=== PATIENT | male | born 1990 | race Caucasian/White ===

== ENCOUNTER 2024-03-15 18:51 | Inpatient (IN) ==
--- NOTE | 2024-03-15 19:10 | Emergency Department Note ---
Impression & Plan Heart palpitations, Sinus tachycardia, Non-ST elevation [place] (NSTEMI), Acute hypokalemia ED Provider Note HISTORY OF PRESENT ILLNESS: Patient is a 33-year-old male presenting with palpitations. 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 Reports he did not feel right. States that symptoms persisted throughout the afternoon and when he got home he still was not feeling his normal self and his parents brought him to the emergency room. He denies any chest pain or shortness of breath. He reports that he feels like his heart is racing and skipping beats. Denies any recent travel. Denies any medication usage. He denies any recent initiation of medications. He does not drink excessive caffeine. Denies any alcohol or recreational drug use. He denies any DVT or PE history. He is not on any anticoagulation. Denies any significant lightheadedness at this time. ROS: as above PHYSICAL EXAM: Constitutional: Patient appears in no acute distress. HENT: Head: Normocephalic and atraumatic. Eyes: EOMI, PERRL Mouth/Throat: Mucous membranes moist. Neck: Trachea midline. Neck supple. Cardiovascular: Tachycardic with regular rhythm. No murmurs, rubs or gallops. Intact distal pulses. Pulmonary/Chest: No respiratory distress. Breath sounds clear and equal bilaterally. No wheezes or rales. No chest wall tenderness to palpation. Abdominal: Abdomen soft, no tenderness, rebound or guarding. Musculoskeletal: No edema, tenderness or deformity noted. Skin: Warm and dry. No rash, erythema, pallor or cyanosis Psychiatric: Appropriate mood and affect for situation. Neurological: Alert and keenly responsive. CN II-XII grossly intact, moving all extremities equally and fully. MDM: - Vitals signs showed hypertension and tachycardia. - History obtained via patient. History as above. - Chronic conditions affecting care: none - Differential diagnoses include, but are not limited to: Dysrhythmia; electrolyte abnormality; dehydration; medication side effect; pneumonia; PE - Order placed for continuous cardiac monitoring. At this time, monitor showed rate of 120 bpm with normal sinus rhythm, per my interpretation. - External medical records reviewed. Primary care visit note dated 06/01/2019 was reviewed. Patient followed in their clinic for benign positional vertigo. He was referred to ENT. - EKG interpreted by myself showed normal sinus rhythm. Rate tachycardic at 152 bpm. QT 332. No acute ischemic changes. - Laboratory workup interpreted by myself showed normal WBC; hypokalemia (K 3.1); negative dimer; normal PT/INR; elevated troponin (39) - Patient given 2L NS with minimal improvement in HR. - CT PE negative for PE. - Repeat troponin rising to 67.2 - CXR negative for pneumonia, per my interpretation - Viral respiratory panel added to workup - Unclear etiology for patient's persistent tachycardia. NSTEMI is likely in the setting of his rapid heart rate and demand ischemia. - 30 mEq IV potassium ordered for electrolyte replacement. - TSH added to workup - Discussion was had with rifle case repairer about patient's case and need for admission - Hospitalist consulted for admission - Patient admitted to [facility] for further evaluation and management. ASSESSMENT AND PLAN: Diagnosis: sinus tachycardia; NSTEMI; acute hypokalemia; heart palpitations Plan: admit Past Med/Surg History Problem List (Updated 03/15/24 @ 22:56 by Daisha Person MD) Acute hypokalemia (Acute) Non-ST elevation WA (NSTEMI) (Acute) Sinus tachycardia (Acute) Heart palpitations (Acute) Impacted cerumen of both ears (Chronic) Benign positional vertigo (Chronic) Acid reflux disease Vitamin D deficiency Surgical History (Updated 06/08/19 @ 08:11 by Kathy Park) No history of previous surgery Family History (Updated 06/08/19 @ 08:13 by Kathy Park) Grandmother Hypertension Breast cancer Unknown Breast cancer Grandmother Breast cancer Denies family history of Hearing loss Clotting disorder Heart disease Stroke Asthma Social History (Updated 06/08/19 @ 08:16 by Kathy Park) Smoking Status: Never smoker Second Hand Exposure: No; Do You Dip or Chew Tobacco: No; Hx Alcohol Use: No Hx Substance Use: No Preferred Language: Georgian marital status: Single current occupational status: employed current occupation: [employer] Feels Safe at Home: Yes Childhood Exposure to Second-Hand Smoke: No Allergies Allergies Allergy/AdvReac Type Severity Reaction Status Date / Time amoxicillin AdvReac Stomach Verified 06/08/19 08:09 pain Home Meds Previous Rx's Medication Instructions Recorded meclizine 25 mg tablet 25 mg PO TID PRN dizziness #20 tabs 05/05/19 prednisone 50 mg tablet 50 mg PO DAILY #5 tabs 05/05/19 Results & Data (ED) Vital Signs Vital Signs - 24 hr 03/15/24 18:58 03/15/24 19:08 03/15/24 19:11 Temperature 37.3 C Temperature Source Oral Pulse Rate 153 H 151 H 155 H Pulse Rate from SpO2 Sensor Respiratory Rate 20 17 Respiratory Effort / Characteristics Non-Labored Respiratory Depth Normal Respiratory Pattern Regular Blood Pressure 184/97 H Blood Pressure Mean 126 Pulse Oximetry 98 Oxygen Delivery Method Room Air Sepsis Recent Fever Within 48 Hours No Sepsis New/Unexplained Change in Mental Status N/A Sepsis Action Taken by Nursing No Action Required 03/15/24 19:11 03/15/24 19:11 03/15/24 19:28 Temperature Temperature Source Pulse Rate 148 H Pulse Rate from SpO2 Sensor Respiratory Rate 18 Respiratory Effort / Characteristics Respiratory Depth Respiratory Pattern Blood Pressure 152/108 H Blood Pressure Mean 117 Pulse Oximetry Oxygen Delivery Method Room Air Sepsis Recent Fever Within 48 Hours Sepsis New/Unexplained Change in Mental Status Sepsis Action Taken by Nursing 03/15/24 19:28 03/15/24 19:30 03/15/24 19:30 Temperature Temperature Source Pulse Rate 134 H Pulse Rate from SpO2 Sensor 134 H Respiratory Rate 18 Respiratory Effort / Characteristics Respiratory Depth Respiratory Pattern Blood Pressure 137/83 Blood Pressure Mean 111 Pulse Oximetry 96 Oxygen Delivery Method Room Air Sepsis Recent Fever Within 48 Hours Sepsis New/Unexplained Change in Mental Status Sepsis Action Taken by Nursing 03/15/24 20:00 03/15/24 20:00 03/15/24 20:30 Temperature Temperature Source Pulse Rate 131 H Pulse Rate from SpO2 Sensor 131 H Respiratory Rate 18 Respiratory Effort / Characteristics Respiratory Depth Respiratory Pattern Blood Pressure 116/76 134/77 Blood Pressure Mean 93 101 Pulse Oximetry 97 Oxygen Delivery Method Sepsis Recent Fever Within 48 Hours Sepsis New/Unexplained Change in Mental Status Sepsis Action Taken by Nursing 03/15/24 20:30 03/15/24 21:16 03/15/24 21:56 Temperature Temperature Source Pulse Rate 131 H Pulse Rate from SpO2 Sensor 130 H 135 H 118 H Respiratory Rate 16 Respiratory Effort / Characteristics Respiratory Depth Respiratory Pattern Blood Pressure Blood Pressure Mean Pulse Oximetry 97 99 98 Oxygen Delivery Method Sepsis Recent Fever Within 48 Hours Sepsis New/Unexplained Change in Mental Status Sepsis Action Taken by Nursing 03/15/24 21:56 05/20/24 22:00 03/15/24 22:30 Temperature Temperature Source Pulse Rate 113 H 112 H Pulse Rate from SpO2 Sensor 114 H 112 H Respiratory Rate 17 29 H Respiratory Effort / Characteristics Respiratory Depth Respiratory Pattern Blood Pressure 124/86 Blood Pressure Mean 94 Pulse Oximetry 98 96 Oxygen Delivery Method Sepsis Recent Fever Within 48 Hours Sepsis New/Unexplained Change in Mental Status Sepsis Action Taken by Nursing 03/15/24 22:36 03/15/24 22:36 Temperature Temperature Source Pulse Rate 123 H Pulse Rate from SpO2 Sensor 125 H Respiratory Rate 25 H Respiratory Effort / Characteristics Respiratory Depth Respiratory Pattern Blood Pressure 136/102 H Blood Pressure Mean 110 Pulse Oximetry 98 Oxygen Delivery Method Sepsis Recent Fever Within 48 Hours Sepsis New/Unexplained Change in Mental Status Sepsis Action Taken by Nursing Laboratory Data 03/15/24 19:20 03/15/24 19:20 Lab Results 03/15/24 03/15/24 Range/Units 19:20 21:21 WBC 9.24 (4.8-10.8) K/ul RBC 5.56 (4.70-6.10) M/uL Hgb 16.3 (14.0-18.0) g/dl Hct 45.2 (42.0-52.0) % MCV 81.3 (80.0-100.0) fL MCH 29.3 (25.0-34.0) pg MCHC 36.1 H (32.0-36.0) g/dL RDW Std Deviation 36.7 (36.4-46.3) fL RDW Coeff of Hiram 12.4 (11.5-14.5) % Plt Count 179 (130-400) K/uL MPV 11.2 (9.4-12.4) fL Immature Gran % (Auto) 0.3 % Neut % (Auto) 75.0 % Lymph % (Auto) 15.6 % Douglas % (Auto) 6.7 % Eos % (Auto) 1.8 % Baso % (Auto) 0.6 % Neut # (Auto) 6.92 H (1.40-6.50) K/uL Lymph # (Auto) 1.44 (1.20-3.40) K/uL Douglas # (Auto) 0.62 H (0.11-0.59) K/uL Eos # (Auto) 0.17 (0.00-0.50) K/uL Baso # (Auto) 0.06 (0.00-0.20) K/uL Immature Gran # (Auto) 0.03 (0.01-0.20) K/uL PT 10.5 (9.0-12.0) Seconds INR 1.0 (0.9-1.1) APTT 27 (21-31) Seconds PTT Ratio 1.0 D-Dimer < 190 (0-500) ug/L FEU Sodium 137 (136-145) mmol/L Potassium 3.1 L (3.5-5.1) mmol/L Chloride 102 (98-107) mmol/L Carbon Dioxide 27 (21-32) mmol/L Anion Gap 8 (3-11) BUN 19 (6-23) mg/dl Creatinine 1.05 (0.6-1.4) mg/dl Est Cr Clr Drug Dosing 145.7 ml/min Est GFR ( Amer) 108.3 ml/min Est GFR (Non-Af Amer) 93.5 ml/min BUN/Creatinine Ratio 18.1 (10-20) Glucose 118 H (70-99(Fasting)) mg/dl Calcium 9.7 (8.6-10.3) mg/dl Magnesium 1.9 (1.7-2.4) mg/dl Total Bilirubin 0.8 (0.2-1.0) mg/dl AST 24 (13-39) U/L ALT 41 (7-52) U/L Alkaline Phosphatase 63 (34-104) U/L Troponin I High Sens 39.0 H 67.2 H* D (0-20) pg/ml B-Natriuretic Peptide 16 (0-100) pg/ml Total Protein 7.9 (6.0-8.3) gm/dl Albumin 4.7 (3.4-5.0) gm/dl Globulin 3.2 (2.5-4.0) gm/dl Albumin/Globulin Ratio 1.5 (0.9-2) Administered Medications Discontinued Medications Sodium Chloride (Nss) 1,000 mls @ 999 mls/hr IV .Q1H1M ONE Stop: 03/15/24 20:06 Last Infusion: 03/15/24 21:02 Dose: Infused Documented By: Admin: 03/15/24 20:21 Dose: 999 mls/hr Documented By: LAUREEN Sodium Chloride (Nss) 1,000 mls @ 999 mls/hr IV .Q1H1M ONE Stop: 03/15/24 21:24 Last Infusion: 03/15/24 22:11 Dose: Infused Documented By: Admin: 03/15/24 21:02 Dose: 999 mls/hr Documented By: LAUREEN Ioversol (Optiray 320 125ml) 118 ml IV ONCE ONE Stop: 03/15/24 21:11 Last Admin: 03/15/24 21:10 Dose: 118 ml Documented By: ROSI Imaging Data Radiologist's Impression: Chest CTA 03/15/24 20:33 Exam(s): CTA CHEST IV Amt: 118ml optiray 320 EXAM: CT Angiography Chest With Intravenous Contrast CLINICAL HISTORY: Reason for exam: PE. TECHNIQUE: Axial computed tomographic angiography images of the chest with intravenous contrast. CTDI is 28.14 mGy and DLP is 873.63 mGy-cm. Automated exposure control was utilized for the study. A dose lowering technique was utilized adhering to the principles of ALARA. MIP reconstructed images were created and reviewed. COMPARISON: No relevant prior studies available. FINDINGS: Pulmonary arteries: Unremarkable. No pulmonary embolism. Aorta: No acute findings. No thoracic aortic aneurysm. Lungs: Unremarkable. No mass. No consolidation. Pleural space: Unremarkable. No significant effusion. No pneumothorax. Heart: Unremarkable. No cardiomegaly. No significant pericardial effusion. No evidence of RV dysfunction. Bones/joints: No acute fracture. No dislocation. Soft tissues: Unremarkable. Lymph nodes: Unremarkable. No enlarged lymph nodes. IMPRESSION: Normal chest CTA. No pulmonary embolism. Electronically signed by: Chano Beauchamp MD 03/15/24 21:47 PM Discharge Plan Visit Data Chief Complaint: Arrhythmia/Palpitations Stated Complaint: PALPITATIONS ED Provider: Daisha Person Discharge Problem: Heart palpitations, Sinus tachycardia, Non-ST elevation WA (NSTEMI), Acute hypokalemia Forms Stand Alone Forms: kingsky Prescriptions Prescriptions: No Action prednisone 50 mg tablet 50 mg PO DAILY Qty: 5 0RF meclizine 25 mg tablet 25 mg PO TID PRN (Reason: dizziness) Qty: 20 0RF Referrals Referrals: PCP,NO [Physician] -
[2024-03-15 19:43] LABS: Basophils # (auto) 0.06 K/uL (0.00-0.20); Basophils % (auto) 0.6 %; Eosinophils # (auto) 0.17 K/uL (0.00-0.50); Eosinophils % (auto) 1.8 %; Hematocrit (blood only) 45.2 % (42.0-52.0); Hemoglobin 16.3 g/dl (14.0-18.0); Immature Granulocytes # (auto) 0.03 K/uL (0.01-0.20); Immature Granulocytes % (auto) 0.3 %; Lymphocytes # (auto) 1.44 K/uL (1.20-3.40); Lymphocytes % (auto) 15.6 %; Mean Corpuscular Hemoglobin 29.3 pg (25.0-34.0); Mean Corpuscular Hgb Conc 36.1 g/dL (32.0-36.0); Mean Corpuscular Volume 81.3 fL (80.0-100.0); Mean Platelet Volume 11.2 fL (9.4-12.4); Monocytes # (auto) 0.62 K/uL (0.11-0.59); Monocytes % (auto) 6.7 %; Neutrophils # (auto) 6.92 K/uL (1.40-6.50); Platelet Count 179 K/uL (130-400); RDW Coefficient of Variation 12.4 % (11.5-14.5); RDW Standard Deviation 36.7 fL (36.4-46.3); Red Blood Count 5.56 M/uL (4.70-6.10); White Blood Count 9.24 K/ul (4.8-10.8)
[2024-03-15 20:01] LABS: Albumin Globulin Ratio 1.5 (0.9-2); Albumin Level 4.7 gm/dl (3.4-5.0); BUN Creatinine Ratio 18.1 (10-20); Bilirubin,Total 0.8 mg/dl (0.2-1.0); Calcium 9.7 mg/dl (8.6-10.3); Creatinine Clr Calc Pharmacy 145.7 ml/min; Est GFR (African American) 108.3 ml/min; Est GFR (Non-African American) 93.5 ml/min; Globulin 3.2 gm/dl (2.5-4.0); Magnesium 1.9 mg/dl (1.7-2.4); Potassium 3.1 mmol/L (3.5-5.1); Total Protein 7.9 gm/dl (6.0-8.3)
[2024-03-15 20:10] LABS: D Dimer < 190 ug/L FEU (0-500); Partial Thromboplastin Time 27 Seconds (21-31); Prothrombin Time 10.5 Seconds (9.0-12.0)
[2024-03-15] MEDS: SODIUM CHLORIDE 0.9% 1,000 ML IV ONE ×2 (20:21→21:02)
[2024-03-15] MEDS: OPTIRAY 320 125ml IV ONE (21:10)
--- NOTE | 2024-03-15 21:48 | CT Scan Report ---
Exam(s): CTA CHEST IV Amt: 118ml optiray 320 EXAM: CT Angiography Chest With Intravenous Contrast CLINICAL HISTORY: Reason for exam: PE. TECHNIQUE: Axial computed tomographic angiography images of the chest with intravenous contrast. CTDI is 28.14 mGy and DLP is 873.63 mGy-cm. Automated exposure control was utilized for the study. A dose lowering technique was utilized adhering to the principles of ALARA. MIP reconstructed images were created and reviewed. COMPARISON: No relevant prior studies available. FINDINGS: Pulmonary arteries: Unremarkable. No pulmonary embolism. Aorta: No acute findings. No thoracic aortic aneurysm. Lungs: Unremarkable. No mass. No consolidation. Pleural space: Unremarkable. No significant effusion. No pneumothorax. Heart: Unremarkable. No cardiomegaly. No significant pericardial effusion. No evidence of RV dysfunction. Bones/joints: No acute fracture. No dislocation. Soft tissues: Unremarkable. Lymph nodes: Unremarkable. No enlarged lymph nodes. IMPRESSION: Normal chest CTA. No pulmonary embolism. Electronically signed by: Chano Beauchamp MD 03/15/24 21:47 PM
[2024-03-15] MEDS: POTASSIUM CHLORIDE / WTR 10 MEQ/100 ML PLCT IV SCH (23:01)
--- NOTE | 2024-03-15 23:20 | History & Physical Report ---
"Date of Service March 15, 2024 Assessment & Plan (1) Sinus tachycardia: Plan: is a 33M with PMH of BPPV, GERD, and Vitamin D deficiency who presents to [facility] for an acute episode of palpitations. Palpitations | Sinus Tachycardia - Acute episode of palpitations, no prior history - CTA w/o PE - CXR negative - EKG showing sinus tachycardia - Potential association with increased caffeine intake and/or hypokalemia No nicotine, alcohol, or illicit substance use Acute dietary change while on vacation last week (potential provocation of hypokalemia) - No family history of cardiomyopathy or CAD - S/p 2L IVF in ED, continue mIVF x 1 bag - Goal K of 4, Mg of 2 - Echocardiogram ordered Elevated Troponin | NSTEMI vs Demand - Patient denies chest pain, dyspnea at rest or exertion, edema, orthopnea, and claudication - EKG w/o acute ST or T wave changes - Trop 39 to 76, continue to trend troponin - Follow EKG serially, continue on telemetry Hypokalemia - Maternal family history of hypokalemia induced sinus tachycardia - K Catracho x 3 - Mg x 2 - Follow BMP/Mg Chronic Conditions: - BPPV: Continue Meclizine PRN for symptoms - Elevated BMI (39.3): Given rising BP, snoring, and awakening unrested, could consider polysomnography outpatient or inpatient overnight pulse ox study to evaluate for TAMANNA FEN: Regular Code status: Full Code DVT ppx: Ambulation Isolation: None Dispo:Med/Surg w/ telemetry (2) Non-ST elevation [place] (NSTEMI): (3) Acute hypokalemia: (4) Benign positional vertigo: (5) Acid reflux disease: (6) Vitamin D deficiency: History of Present Illness Chief Complaint: Palpitations Primary Care Provider: Naheed Ayoub MD is a 33M with PMH of BPPV, GERD, and Vitamin D deficiency who presents to [facility] for an acute episode of palpitations. 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 This has never happened to him before. When his symptoms persisted into the evening he decided he should present to the ED. Patient denies chest pain or dyspnea. He has not had any increased LE edema or dyspnea on exertion, denies orthopnea or claudication. Patient has no personal or family history of cardiomyopathy. He is currently taking no daily medications and only uses Meclizine PRN for BPPV. Patient's mother notes that she has had episode of sinus tachycardia with hypokalemia (from diuretic use) in the past. Patient denies alcohol, nicotine, or illicit substance use. He does not smoke or vape. He does not take he has a refresher from [employer] every day which contains caffeine, he notes that today's seemed stronger than normal. Patient was recently away [place] vacation [place] the [place] and notes that his diet was acutely less healthy while away. Patient's mother expressed concern about his snoring, patient notes that he often awakens unrested and has struggled with rising BP over the last few months, but denies daytime hypersomnolence or morning headaches. . Allergies Allergy/AdvReac Type Severity Reaction Status Date / Time amoxicillin AdvReac Stomach Verified 03/15/24 23:24 pain Home Medications Medication Instructions Recorded Confirmed Type naproxen sodium 220 mg tablet 220 mg PO BID PRN Pain 03/15/24 03/15/24 History (Aleve) sodium chloride 0.65 % nasal drops 1 drp intranasal DAILY 03/15/24 03/15/24 History Past Med/Surg History Problem List (Updated 03/15/24 @ 22:56 by Daisha Person MD) Acute hypokalemia (Acute) Non-ST elevation SC (NSTEMI) (Acute) Sinus tachycardia (Acute) Heart palpitations (Acute) Impacted cerumen of both ears (Chronic) Benign positional vertigo (Chronic) Acid reflux disease Vitamin D deficiency Surgical History (Updated 06/08/19 @ 08:11 by Kathy Park) No history of previous surgery Family History (Updated 06/08/19 @ 08:13 by Kathy Park) Grandmother Hypertension Breast cancer Unknown Breast cancer Grandmother Breast cancer Denies family history of Hearing loss Clotting disorder Heart disease Stroke Asthma Social History (Updated 06/08/19 @ 08:16 by Kathy Park) Smoking Status: Never smoker Second Hand Exposure: No; Do You Dip or Chew Tobacco: No; Hx Alcohol Use: No Hx Substance Use: No Preferred Language: Kinyarwanda Communication Ability: Effective 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 Beliefs That Will Affect Care: None marital status: Single Current Living Situation: Parent current occupational status: employed current occupation: [employer] Other Information That Helps Us Care for You: No Feels Safe at Home: Yes Safety Concerns: Feels Safe At This Time Childhood Exposure to Second-Hand Smoke: No Assistive Devices: None Physical Exam Physical Exam: Gen: NAD, alert, interactive HEENT: Supple, no LAD, no thyromegaly, no JVD Resp:Non-labored, no wheezing/rhonchi/rales, CTAB CV:tachycardic, regular rhythm, normal S1/S2, no M/R/G Abd: Soft, non-distended, no TTP, normoactive bowels, no masses Extr: 2+ dp bilaterally, no edema Skin: No rashes lesions or erythema Results & Data Results & Data Vital Signs (Past 12 Hours) Vital Signs Temp Pulse Resp BP Pulse Ox O2 Del Method 03/15/24 22:36 136/102 H 03/15/24 22:36 123 H 25 H 98 03/15/24 22:30 112 H 29 H 96 03/15/24 22:00 113 H 17 98 03/15/24 21:56 124/86 03/15/24 21:56 98 03/15/24 21:16 99 03/15/24 20:30 131 H 16 97 03/15/24 20:30 134/77 03/15/24 20:00 116/76 03/15/24 20:00 131 H 18 97 03/15/24 19:30 137/83 03/15/24 19:30 134 H 18 96 03/15/24 19:28 Room Air 03/15/24 19:28 Room Air 03/15/24 19:11 152/108 H 03/15/24 19:11 148 H 18 03/15/24 19:11 155 H 03/15/24 19:08 151 H 17 03/15/24 18:58 37.3 C 153 H 20 184/97 H 98 Room Air Supervising Physician Co-Signing Physician Notes Patient seen and examined, chart reviewed, case discussed with Dr. Adan and I agree with the assessment and plan as above. In brief, patient is a 33yo male presenting with sinus tachycardia - palpitations today. On exam he is resting comfortably, NAD Skin - warm, well perfused, no rash HEENT -MMM, Neck supple Heart - +S1/S2, regular, tachycardic, no m/r/g Lungs - CTA, no rales/rhonchi/wheezes Abd - +BS, soft, NT/ND Ext - warm, well perfused, no clubbing/cyanosis or edema Labs and images reviewed K=3.1 Trop 39 --> 67.2 --> 44.1 +Enterovirus CTA chest without PE Assessment/Plan - 33yo male with sinus tachycardia. Asymptomatic. No evidence of failure Troponin has peaked -electrolyte repletion -check 2D echo -Remainder as above Resident Activity Tracking Resident Involvement: Resident Care Provided Care Provided: Adult Hospital Medicine (Night)"
[2024-03-15 23:32] LABS: Thyroid Stimulating Hormone 1.397 uIu/ml (0.300-4.500)
[2024-03-15 23:40] LABS: Adenovirus PCR Not Detected (NotDetected); Bordetella parapertussis PCR Not Detected (NotDetected); Bordetella pertussis PCR Not Detected (NotDetected); Chlamydia pneumoniae PCR Not Detected (NotDetected); Coronavirus 229E PCR Not Detected (NotDetected); Coronavirus CoV-2 (COVID19)PCR Not Detected (NotDetected); Coronavirus HKU1 PCR Not Detected (NotDetected); Coronavirus NL63 PCR Not Detected (NotDetected); Coronavirus OC43PCR Not Detected (NotDetected); Human Metapneumovirus PCR Not Detected (NotDetected); Influenza A PCR Not Detected (NotDetected); Influenza B PCR Not Detected (NotDetected); Mycoplasma pneumoniae PCR Not Detected (NotDetected); Parainfluenza Virus 1 PCR Not Detected (NotDetected); Parainfluenza Virus 2 PCR Not Detected (NotDetected); Parainfluenza Virus 3 PCR Not Detected (NotDetected); Parainfluenza Virus 4 PCR Not Detected (NotDetected); Respiratory Syncytial VirusPCR Not Detected (NotDetected); Rhinovirus/Enterovirus PCR DETECTED (NotDetected)
[2024-03-16] MEDS ORDERED: ONDANSETRON INJ 2 MG/ML 2 ML VIAL IV PRN (01:26)
[2024-03-16] MEDS ORDERED: POLYETHYLENE (MIRALAX) 17 GM PACK PO PRN (01:26)
[2024-03-16] MEDS ORDERED: ACETAMINOPHEN 325 MG TAB PO PRN (01:26)
[2024-03-16] MEDS: LACTATED RINGER'S 1,000 ML IV SCH (01:40)
--- NOTE | 2024-03-16 02:59 | Billing Data ---
Date of Service March 15, 2024 Coding Level of Care Code 15989 INT INP/OBS CARE
[2024-03-16] MEDS: MAGNESIUM SULFATE / D5W 1 GM/100 ML BAG IV SCH (03:15)
[2024-03-16] MEDS: PERFLUTREN LIPID MICROSPHERE (DEFINITY) IV ONE (06:53)
--- NOTE | 2024-03-16 07:30 | XRay Report ---
XR chest 1V not portable CLINICAL HISTORY: Chest pain, nonspecific. COMPARISON STUDY: No previous studies for comparison. FINDINGS: Lung volumes are normal. Lungs are clear. There is no pneumothorax or pleural effusion. Car diac size is normal. Mediastinal contours are normal. There is no evidence for pulmonary edema. IMPRESSION: No acute cardiopulmonary findings. ACT 112: Negative or not required by law. Electronically signed by: Reese Prince M.D. 03/16/2024 7:29 AM
[2024-03-16 09:39] LABS: Estimated Average Glucose 82 mg/dl; Hemoglobin A1C 4.5 % (4.5-5.6)
[2024-03-16 09:42] LABS: Chol HDL Ratio 3.3 (0-5)
[2024-03-16 10:44] LABS: BUN Creatinine Ratio 15.6 (10-20); Creatinine Clr Calc Pharmacy 198.2 ml/min; Est GFR (African American) 139.2 ml/min; Est GFR (Non-African American) 120.1 ml/min; Potassium 3.7 mmol/L (3.5-5.1)
--- NOTE | 2024-03-16 13:40 | XCELERA ---
[id number]
--- NOTE | 2024-03-16 15:51 | Electrocardiogram Report ---
Test Reason : Blood Pressure : / mmHG Vent. Rate : 152 BPM Atrial Rate : 153 BPM P-R Int : 112 ms QRS Dur : 080 ms QT Int : 332 ms P-R-T Axes : 000 020 039 degrees QTc Int : 527 ms Sinus tachycardia Low voltage QRS Borderline ECG No previous ECGs available Confirmed by Wilmer Vaughan ([id number]) on 03/16/2024 3:51:41 PM Referred By: REFERRED SELF Confirmed By:Wilmer Vaughan
--- NOTE | 2024-03-16 16:35 | Discharge Summary ---
"Date of Service March 16, 2024 Admission HPI Per Admitting Provider is a 33M with PMH of BPPV, GERD, and Vitamin D deficiency who presents to [facility] for an acute episode of palpitations. 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 This has never happened to him before. When his symptoms persisted into the evening he decided he should present to the ED. Patient denies chest pain or dyspnea. He has not had any increased LE edema or dyspnea on exertion, denies orthopnea or claudication. Patient has no personal or family history of cardiomyopathy. He is currently taking no daily medications and only uses Meclizine PRN for BPPV. Patient's mother notes that she has had episode of sinus tachycardia with hypokalemia (from diuretic use) in the past. Patient denies alcohol, nicotine, or illicit substance use. He does not smoke or vape. He does not take he has a refresher from [employer] every day which contains caffeine, he notes that today's seemed stronger than normal. Patient [place] the [place] and notes that his diet was acutely less healthy while away. Patient's mother expressed concern about his snoring, patient notes that he often awakens unrested and has struggled with rising BP over the last few months, but denies daytime hypersomnolence or morning headaches. . Admission Exam Per Admitting Provider Gen: NAD, alert, interactive HEENT: Supple, no LAD, no thyromegaly, no JVD Resp:Non-labored, no wheezing/rhonchi/rales, CTAB CV:tachycardic, regular rhythm, normal S1/S2, no M/R/G Abd: Soft, non-distended, no TTP, normoactive bowels, no masses Extr: 2+ dp bilaterally, no edema Skin: No rashes lesions or erythema Principal Diagnosis Tachycardia/palpitations Discharge Exam Constitutional WD/WN, vitals as above Respiratory normal respiratory effort, lungs clear to auscultation Cardiovascular +mildly tachycardic, regular rhythm, no murmurs appreciated, no edema Skin no rashes, warm and dry Psychiatric A+Ox3, euthymic affect Discharge Data Allergies Allergy/AdvReac Type Severity Reaction Status Date / Time amoxicillin AdvReac Stomach Verified 03/15/24 23:24 pain Consultations 03/15/24 22:52 ED Decision to Admit Stat Ordered Studies 03/15/24 20:33 CT for pulmonary embolism PE [CT angio chest PE protocol] Stat Hospital Course (1) Sinus tachycardia: is a 33M with PMH of BPPV, GERD, and Vitamin D deficiency who presents to [facility] for an acute episode of palpitations. Palpitations | Sinus Tachycardia - Acute episode of palpitations, no prior history - CTA w/o PE - CXR negative - EKG with sinus tachycardia - No family history of cardiomyopathy or CAD - Unclear etiology, could be caffeine related vs true arrhythmia - consider event monitor if recurrent Elevated Troponin | NSTEMI vs Demand - Patient denies chest pain, dyspnea at rest or exertion, edema, orthopnea, and claudication - EKG w/o acute ST or T wave changes - Trop 39 on admission, peaked at 76 with subsequent downtrend - TTE WNL - Multiple possible etiologies, consider mild, subclinical myocarditis in the setting of recent viral illness (tested positive for rhino/enterovirus) - low suspicion for coronary disease given negative family history and few risk factors - A1c 4.5, LDL 69 but could consider follow up stress test in outpatient setting Hypokalemia - Resolved: - Pt noted maternal family history of hypokalemia induced sinus tachycardia - S/p K Catracho x 3, Mg x 2 Chronic Conditions: - BPPV: Continue Meclizine PRN for symptoms - Elevated BMI (39.3): Given rising BP, snoring, and awakening unrested, could consider polysomnography outpatient (2) Non-ST elevation VT (NSTEMI): (3) Acute hypokalemia: (4) Benign positional vertigo: (5) Acid reflux disease: (6) Vitamin D deficiency: Total Time Total Time Spent Total Time Spent (In Minutes): see attending attestation Discharge Plan Discharge Items Patient Disposition: Home - Self-Care Reason For Visit: PALPITATIONS Discharge Diagnosis: Sinus tach Activity: Resume your previous activity Non-emergency contact: Primary Care Provider Call non-emergency contact if: your symptoms worsen Follow-up/Referrals: Naheed Ayoub MD [Primary Care Provider] - 03/23/24 11:30 am Diet: Regular Addtl Attending Provider Instructions: You were admitted to the hospital with increased heart rate and palpitations. You had several tests done to evaluate your heart - you EKG did not demonstrate any signs of compromised blood flow or atypical heart rhythms. We also did a CT angiogram and an echocardiogram, both of which were normal. Your labs showed mild electrolyte abnormalities which were corrected but it is still unclear what exactly caused your symptoms. We were at least able to rule out the most serious potential etiologies. Moving forward, it would be a good idea to follow up with your PCP to determine if any next steps need to be taken. A discharge summary will be sent to your primary care physician to ensure continuity of care. Please bring this discharge summary with you to your next office appointment so that your provider can review it at that time. Medications: Your medication list has been reviewed and reconciled upon discharge to ensure accuracy and continuity of care. An updated list of all your medications is included with your hospital discharge paperwork. Please review this list closely and make note of any changes to your medications. No changes were made to your home medications - please continue to take all medications as previously directed. Follow up appointments: - Make a follow up appointment with your PCP within the next week. It is very important that you follow up with them shortly after discharge from the hospital. - Keep all of your follow up appointments as already scheduled. If you cannot make an appointment, notify your provider. CONTACT YOUR PRIMARY CARE PROVIDER if you experience any of the following: - Difficulty following your treatment plan - Difficulty taking any of your medications CALL 911 OR GO TO THE EMERGENCY DEPARTMENT if you experience any of the following: - Sudden, severe abdominal pain or nausea/vomiting - Severe chest pain or chest pain that radiates to your jaw or arm - Sudden, severe shortness of breath or difficulty breathing Pending Studies at Discharge: No Stand-Alone Forms: [facility], Smoking Cessation Medications and DC Order Prescriptions: Continued sodium chloride 0.65 % Drops 1 drp INTRANASAL DAILY naproxen sodium [Aleve] 220 mg Tablet 220 mg PO BID PRN (Reason: Pain) Discharge Orders: Discharge Order (Routine); Ordered 03/16/24 Ordered By: Star Andersen Admission Data Admit Date/Time: 03/15/24 23:52 Attending Provider: Medhat Martinez Admit Provider: Lorna Adan Primary Care Provider: Naheed Ayoub Other Providers: Mariana Reese Other Interventions: Discharge Summary Assessment (RN) Last Done: 03/16/24 16:03 Supervising Physician Co-Signing Physician Notes I personally examined the patient and verified all mustafa points of history and exam, discussed case, and agree with decision making with Dr Andersen Feeling better and would like to go home. Discussing with patient and family in regards to differential diagnoses/working diagnosis. He also notes that he drinks quite a bit of caffeine daily. Vitals noted, in general he is awake and alert pleasant no distress. HEENT normocephalic atraumatic mucous membranes moist. Breathing unlabored no accessory muscle use good effort. Skin without rashes pallor or icterus. Neuro without focal deficits. Palpitations/elevated troponinconsidered demand ischemiabut given his young age, I would suspect demand ischemia would take a much bigger insult than working outside and having some palpitations or excess caffeine, and he does not appear to have any significant risk for coronary disease given that he is not a smoker not a hypertensive does not have diabetes his lipids are quite reasonably controlledso for those purposes I suspect demand means ischemia was ruled out. Also considered demand ischemia in the face of a tacky arrhythmia such as SVT, but his symptoms were really much more consistent with some ectopy or even noncardiac palpitations not SVT. In the end given his recent enterovirus, and very mild troponin elevation that essentially was asymptomaticI suspect he may have had a little bit of a viral related myocarditis that is probably improvingand his palpitations were most likely ectopy that was a little bit from myocarditis, but far more from excess caffeine (he drinks in excess of 400 mg of caffeine frequentlywe discussed a reasonable limit of about 200 mg) as well as probably a degree of dehydration and compounded by his hypokalemia (which has been replaced) with that in mind, safe/stable for home. Cut down on caffeine, stay well-hydrated. Follow-up with his PCP. He does not show any chest pain/dyspnea on exertion or new fatigability, but instructed him to seek care immediately should any of those symptoms develop. In relation to his possibly mild myocarditis, it really seems to be resolving and did not appear to be symptomatic (outside of the very small possibility it was contributing to ectopy causing his palpitationsbut again with dehydration/hypokalemia and excess caffeine with more than enough reasons to explain a degree of ectopy) and therefore no specific myocarditis treatment appears to be necessary. Safe/stable for home. Otherwise as above Resident Activity Tracking Resident Involvement: Resident Care Provided Care Provided: Adult Hospital Medicine"
--- NOTE | 2024-03-16 20:25 | Billing Data ---
Date of Service March 16, 2024 Coding Level of Care Code 42790 IN/OBS DISCH 30 MIN/LESS
== END 2024-03-16 16:34 | disposition home or self-care (01) | DRG 316 ==
LOC: ED 18:51 → 2W 23:52 → SUATTDRO 23:52 → 2W 03-16 01:09